=== PATIENT | male | born 1965 | race Caucasian/White ===

== ENCOUNTER 2017-05-08 03:25 | Emergency (ER) | payer BC ==
[2017-05-08 03:34] VITALS: BP 160/108
--- NOTE | 2017-05-08 04:01 | EDM.PDOC ---
ED HPI GENERAL MEDICAL PROBLEM - General Chief Complaint: ENT Problem Stated Complaint: MOUTH WONT STOP BLEEDING Time Seen by Provider: 05/08/17 03:50 Source of Information: Reports: Patient History Limitations: Reports: No Limitations - History of Present Illness INITIAL COMMENTS - FREE TEXT/NARRATIVE: This 52 yo male patient reports to the ED due to bleeding from 2 teeth falling out. The patient reports the 2 teeth had been loose for the past couple of weeks. Yesterday afternoon, the patient reports he was moving the teeth around with his tongue when 1 fell out (no bleeding). The patient reports the other tooth was so loose that he just pulled it out. After pulling out the 2nd tooth, the patient started to notice bleeding. The patient reports he has been bleeding since about 1530 yesterday afternoon. The patient has a fib and is currently on Xeralto. Onset Date: 05/07/17 Onset Time: 15:30 Duration: Constant Location: Reports: Other Severity: Moderate Improves with: Reports: None Worsens with: Reports: None Associated Symptoms: Reports: No Other Symptoms - Related Data Allergies Allergy/AdvReac Type Severity Reaction Status Date / Time No Known Allergies Allergy Verified 05/08/17 03:35 Home Meds: Home Meds Amiodarone HCl [Pacerone] 200 mg PO DAILY 05/08/17 [History] Carvedilol [Coreg] 25 mg PO BID 05/08/17 [History] Furosemide [Lasix] 20 mg PO DAILY 05/08/17 [History] Rivaroxaban [Xarelto] 20 mg PO DAILY 05/08/17 [History] Past Medical History HEENT History: Reports: Impaired Vision Cardiovascular History: Reports: Afib, Arrhythmia - Past Surgical History GI Surgical History: Reports: Hernia Repair/Other Social & Family History - Family History Family Medical History: Noncontributory - Tobacco Use Smoking Status *Q: Current Every Day Smoker Years of Tobacco use: 27 Packs/Tins Daily: 0.4 Second Hand Smoke Exposure: No - Caffeine Use Caffeine Use: Reports: Coffee - Alcohol Use Days Per Week of Alcohol Use: 0 - Recreational Drug Use Recreational Drug Use: No ED ROS ENT - Review of Systems Review Of Systems: ROS reveals no pertinent complaints other than HPI. ED EXAM, ENT - Physical Exam Exam: See Below Exam Limited By: No Limitations General Appearance: Alert, WD/WN, No Apparent Distress, Obese Eye Exam: Bilateral Eye: EOMI, Normal Inspection, PERRL Ears: Normal External Exam, Normal Canal, Hearing Grossly Normal, Normal TMs Nose: Normal Inspection, Normal Mucousa, No Blood Mouth/Throat: Other (bleeding from loose bottom front teeth) Head: Atraumatic, Normocephalic Neck: Normal Inspection, Supple, Non-Tender, Full Range of Motion Respiratory/Chest: No Respiratory Distress, Lungs Clear, Normal Breath Sounds, No Accessory Muscle Use, Chest Non-Tender Cardiovascular: No Edema, No Gallop, No JVD, No Murmur, No Rub, Irregularly Irregular GI/Abdominal: Normal Bowel Sounds, Soft, Non-Tender, No Organomegaly, No Distention, No Abnormal Bruit, No Mass (Male) Exam: Deferred Rectal (Males) Exam: Deferred Back: Normal Inspection, Full Range of Motion Extremities: Normal Inspection, Normal Range of Motion, Non-Tender, No Pedal Edema, Normal Capillary Refill Neurological: Alert, Oriented, CN II-XII Intact, Normal Cognition, Normal Gait, Normal Reflexes, No Motor/Sensory Deficits Psychiatric: Normal Affect, Normal Mood Skin: Warm, Dry, Intact, Normal Color, No Rash Lymphatic: No Adenopathy Course - Vital Signs Last Recorded V/S: Last Vital Signs Temp 36.1 C 05/08/17 03:29 Pulse 56 L 05/08/17 03:29 Resp 16 05/08/17 03:29 BP 160/108 H 05/08/17 03:29 Pulse Ox 97 05/08/17 03:29 - Orders/Labs/Meds Meds: Medications Discontinued Medications Generic Name Dose Route Start Last Admin Trade Name Avelino PRN Reason Stop Dose Admin Silver Nitrate Confirm 05/08/17 04:14 Silver Nitrate Administered 05/08/17 04:15 Dose 1 each .ROUTE .STK-MED ONE - Re-Assessments/Exams Free Text/Narrative Re-Assessment/Exam: 05/08/17 04:19 Attempted to stop the bleeding with direct pressure and applying a tea bag to the area. The bleeding continued from the left lower front tooth. A silver nitrate stick was used. The patient had a very small amount of bleeding after the use of the silver nitrate stick. The patient was given a 2x2 to apply direct pressure to the same area. 05/08/17 04:29 The bleeding subsided with follow-up exam. Departure - Departure Time of Disposition: 04:29 Disposition: Home, Self-Care 01 Condition: Fair Clinical Impression: Dental trauma Qualifiers: Encounter type: initial encounter Qualified Code(s): S09.93XA - Unspecified injury of face, initial encounter - Discharge Information Forms: ED Department Discharge Care Plan Goals: The patient was advised of the examination results during the visit. A silver nitrate stick was applied to the bleeding. If the patient has any additional symptoms or concerns, the patient should follow-up with his primary care facility or visit a dentist.
[2017-05-08] MEDS ORDERED: Silver Nitrate Applicator Each ONE (04:14)
[2017-05-08] MEDS ORDERED: Silver Nitrate Applicator Each TOP ONE (04:22)
== END 2017-05-08 04:38 | disposition home or self-care (01) ==
LOC: DL.ED 03:25
DX: S09.93XA Unspecified injury of face, initial encounter (principal); H54.7 Unspecified visual loss; I48.91 Unspecified atrial fibrillation; F17.210 Nicotine dependence, cigarettes, uncomplicated; Z79.899 Other long term (current) drug therapy; X58.XXXA Exposure to other specified factors, initial encounter
CPT/HCPCS: 99283

== ENCOUNTER 2021-07-31 05:14 | Inpatient (IN) | payer BC ==
--- NOTE | 2021-07-31 06:07 | EDM.PDOC ---
ED HPI GENERAL MEDICAL PROBLEM - General Stated Complaint: FAST HEART RATE Time Seen by Provider: 07/31/21 05:45 Source of Information: Reports: Jail Records History Limitations: Reports: No Limitations - History of Present Illness INITIAL COMMENTS - FREE TEXT/NARRATIVE: This 56 yo male patient reports to the ED this morning due to an elevated heart rate, an elevated blood pressure and chest congestion. The patient reports he was awaken last night at about 2230 with a brief episode of chest pain that radiated to his left arm. The patient reports he has had no additional episodes of chest pain. The patient reports he woke up at 0430 with chest congestion, a fast heart rate and elevated blood pressure. The patient reports he took all of his medications at that time. The patient also reports he got up at about 0230 this morning and took Mariann seltzer and 2 cold pills, but he could not describe exactly how he was feeling prior to taking the medications. The patient has a history of intermittent a fib and CHF. Onset: Today Duration: Constant Location: Reports: Chest, Other Quality: Reports: Other Severity: Moderate Improves with: Reports: None Worsens with: Reports: None Context: Reports: Other Associated Symptoms: Reports: Other (chest congestion) - Related Data Allergies Allergy/AdvReac Type Severity Reaction Status Date / Time No Known Allergies Allergy Verified 07/31/21 05:29 Home Meds: Home Meds Furosemide [Lasix] 20 mg PO DAILY 05/08/17 [History] Rivaroxaban [Xarelto] 20 mg PO DAILY 05/08/17 [History] carvediloL [Coreg] 25 mg PO BID 05/08/17 [History] Allopurinol [Zyloprim] 300 mg PO DAILY 07/31/21 [History] Sotalol [Betapace] 1 tab PO BID 07/31/21 [History] buPROPion [Wellbutrin] 100 mg PO BID 07/31/21 [History] Past Medical History HEENT History: Reports: Impaired Vision Cardiovascular History: Reports: Afib, Arrhythmia Psychiatric History: Reports: Panic Attack - Infectious Disease History Infectious Disease History: Reports: Chicken Pox - Past Surgical History Cardiovascular Surgical History: Reports: Other (See Below) Other Cardiovascular Surgeries/Procedures: Electrocardioversion GI Surgical History: Reports: Hernia Repair/Other Social & Family History - Family History Family Medical History: No Pertinent Family History - Caffeine Use Caffeine Use: Reports: Coffee ED ROS GENERAL - Review of Systems Review Of Systems: Comprehensive ROS is negative, except as noted in HPI. ED EXAM, GENERAL - Physical Exam Exam: See Below Exam Limited By: No Limitations General Appearance: Alert, WD/WN, Mild Distress, Obese Eye Exam: Bilateral Eye: EOMI, Normal Inspection, PERRL Ears: Normal External Exam, Normal Canal, Hearing Grossly Normal, Normal TMs Nose: Normal Inspection, Normal Mucosa, No Blood Throat/Mouth: Normal Inspection, Normal Lips, Normal Teeth, Normal Gums, Normal Oropharynx, Normal Voice, No Airway Compromise Head: Atraumatic, Normocephalic Neck: Normal Inspection, Supple, Non-Tender, Full Range of Motion Respiratory/Chest: No Respiratory Distress, Lungs Clear, Normal Breath Sounds, No Accessory Muscle Use, Chest Non-Tender Cardiovascular: Tachycardia, Systolic Murmur (faint) GI/Abdominal: Normal Bowel Sounds, Soft, Non-Tender, No Organomegaly, No Distention, No Abnormal Bruit, No Mass (Male) Exam: Deferred Rectal (Males) Exam: Deferred Back Exam: Normal Inspection, Full Range of Motion, NT Extremities: Normal Inspection, Normal Range of Motion, Non-Tender, Normal Capillary Refill, Pedal Edema Neurological: Alert, Oriented, CN II-XII Intact, Normal Cognition, Normal Gait, Normal Reflexes, No Motor/Sensory Deficits Psychiatric: Normal Affect, Normal Mood Skin Exam: Warm, Dry, Intact, Normal Color, No Rash Lymphatic: No Adenopathy #1 Interpretation EKG Date: 07/31/21 Time: 05:24 Rhythm: A-Fib (with RVR) Rate (Beats/Min): 137 Bovey: Normal P-Wave: Absent QRS: Normal ST-T: Normal QT: Normal Comparison: Change From Previous EKG Course - Vital Signs Last Recorded V/S: Last Vital Signs Temp 97.9 F 07/31/21 05:35 Pulse 130 H 07/31/21 06:15 Resp 22 H 07/31/21 06:15 BP 110/98 H 07/31/21 06:15 Pulse Ox 96 07/31/21 06:15 - Orders/Labs/Meds Orders: Active Orders 24 hr Category Date Time Status Admission Diagnosis [ADT] Urgent ADT 07/31/21 07:29 Ordered Admission Status [Patient Status] [ADT] Urgent ADT 07/31/21 07:29 Ordered CULTURE BLOOD [BC] Stat Lab 07/31/21 05:50 Received Diltiazem 125 mg Med 07/31/21 06:54 Ordered Sodium Chloride 0.9% [Normal Saline] 125 ml IV ASDIRECTED Medication Orders Diltiazem HCl 125 mg/ Sodium (Chloride) 150 mls @ 5 mls/hr IV ASDIRECTED ONE Stop: 08/01/21 12:53 Labs: Laboratory Tests 07/31/21 07/31/21 07/31/21 Range/Units 05:40 05:50 05:50 WBC 8.2 (5.0-10.0) 10^3/uL RBC 4.54 L (4.6-6.2) 10^6/uL Hgb 14.1 D (14.0-18.0) g/dL Hct 43.1 (40.0-54.0) % MCV 94.9 (80-100) fL MCH 31.1 (27.0-34.0) pg MCHC 32.7 L (33.0-35.0) g/dL Plt Count 184 D (150-450) 10^3/uL Neut % (Auto) 68.1 (42.2-75.2) % Lymph % (Auto) 19.1 L (20.5-50.1) % Bradley % (Auto) 10.2 H (2-8) % Eos % (Auto) 2.1 (1.0-3.0) % Baso % (Auto) 0.5 (0.0-1.0) % Sodium 137 (136-145) mmol/L Potassium 4.0 (3.5-5.1) mmol/L Chloride 104 (98-107) mmol/L Carbon Dioxide 24 (21-32) mmol/L Anion Gap 13.0 (7-13) mEq/L BUN 24 H (7-18) mg/dL Creatinine 1.16 (0.70-1.30) mg/dL Est Cr Clr Drug Dosing 76.19 mL/min Estimated GFR (MDRD) > 60 BUN/Creatinine Ratio 20.7 (No establ ref range) Glucose 126 H (70-99) mg/dL Lactic Acid (0.4-2.0) mmol/L Calcium 8.4 L (8.5-10.1) mg/dL Total Bilirubin 0.4 (0.2-1.0) mg/dL AST 26 (15-37) U/L ALT 46 (16-63) U/L Alkaline Phosphatase 92 (46-116) U/L Troponin I High Sens 13 (<=76) pg/mL B-Natriuretic Peptide (0-100) pg/ml Total Protein 6.7 (6.4-8.2) g/dL Albumin 3.3 L (3.4-5.0) g/dL Globulin 3.4 Albumin/Globulin Ratio 0.97 Influenza Type A RNA Negative (NEGATIVE) Influenza Type B RNA Negative (NEGATIVE) SARS-CoV-2 RNA ([place]AN[place]) Positive H (NEGATIVE) 07/31/21 07/31/21 Range/Units 05:50 05:50 WBC (5.0-10.0) 10^3/uL RBC (4.6-6.2) 10^6/uL Hgb (14.0-18.0) g/dL Hct (40.0-54.0) % MCV (80-100) fL MCH (27.0-34.0) pg MCHC (33.0-35.0) g/dL Plt Count (150-450) 10^3/uL Neut % (Auto) (42.2-75.2) % Lymph % (Auto) (20.5-50.1) % Bradley % (Auto) (2-8) % Eos % (Auto) (1.0-3.0) % Baso % (Auto) (0.0-1.0) % Sodium (136-145) mmol/L Potassium (3.5-5.1) mmol/L Chloride (98-107) mmol/L Carbon Dioxide (21-32) mmol/L Anion Gap (7-13) mEq/L BUN (7-18) mg/dL Creatinine (0.70-1.30) mg/dL Est Cr Clr Drug Dosing mL/min Estimated GFR (MDRD) BUN/Creatinine Ratio (No establ ref range) Glucose (70-99) mg/dL Lactic Acid 0.9 (0.4-2.0) mmol/L Calcium (8.5-10.1) mg/dL Total Bilirubin (0.2-1.0) mg/dL AST (15-37) U/L ALT (16-63) U/L Alkaline Phosphatase (46-116) U/L Troponin I High Sens (<=76) pg/mL B-Natriuretic Peptide 515 H (0-100) pg/ml Total Protein (6.4-8.2) g/dL Albumin (3.4-5.0) g/dL Globulin Albumin/Globulin Ratio Influenza Type A RNA (NEGATIVE) Influenza Type B RNA (NEGATIVE) SARS-CoV-2 RNA ([place]ANNA) (NEGATIVE) Meds: Medications Generic Name Dose Route Start Last Admin Trade Name Freq PRN Reason Stop Dose Admin Diltiazem HCl 125 mg/ Sodium 150 mls @ 5 mls/hr 07/31/21 06:54 Chloride IV 08/01/21 12:53 ASDIRECTED ONE Discontinued Medications Generic Name Dose Route Start Last Admin Trade Name Freq PRN Reason Stop Dose Admin Diltiazem HCl 20 mg 07/31/21 06:30 07/31/21 06:38 Diltiazem 25 Mg/5 Ml Sdv IVPUSH 07/31/21 06:31 20 mg ONETIME ONE Administration Departure - Departure Time of Disposition: 07:35 Disposition: Admitted As Inpatient 64 Condition: Fair Clinical Impression: Atrial fibrillation with RVR, COVID, Elevated brain natriuretic peptide (BNP) level Care Plan Goals: Discussed the patient's history, examination, lab results and treatments with Dr. Wyatt. Dr. Wyatt accepted the patient for continued evaluation and management as an inpatient at [facility]. Sepsis Event Note (ED) - Evaluation Sepsis Screening Result: No Definite Risk - Focused Exam Vital Signs: Vital Signs Temp Pulse Resp BP Pulse Ox 07/31/21 06:15 130 H 22 H 110/98 H 96 07/31/21 06:00 138 H 18 107/95 H 94 L 07/31/21 05:35 97.9 F 142 H 16 114/98 H 94 L - My Orders Last 24 Hours: My Active Orders 07/31/21 05:50 CULTURE BLOOD [BC] Stat 07/31/21 06:54 Diltiazem 125 mg Sodium Chloride 0.9% [Normal Saline] 125 ml IV ASDIRECTED 07/31/21 07:29 Admission Diagnosis [ADT] Urgent Admission Status [Patient Status] [ADT] Urgent - Assessment/Plan Last 24 Hours: My Active Orders 07/31/21 05:50 CULTURE BLOOD [BC] Stat 07/31/21 06:54 Diltiazem 125 mg Sodium Chloride 0.9% [Normal Saline] 125 ml IV ASDIRECTED 07/31/21 07:29 Admission Diagnosis [ADT] Urgent Admission Status [Patient Status] [ADT] Urgent
[2021-07-31 06:27] LABS: CHLORIDE,CL 104 mmol/L (98-107); SODIUM,NA 137 mmol/L (136-145)
[2021-07-31] MEDS ORDERED: Diltiazem 25 MG/5 ML SDV IVPUSH ONE ×2 (06:30→13:05)
[2021-07-31 06:52] LABS: CORONAVIRUS COVID-19 NAA POSITIVE (NEGATIVE)
[2021-07-31] MEDS: Diltiazem 125 MG in Sodium Chloride 0.9% 125 ML IV ONE ×2 (07:39→11:16)
[2021-07-31] MEDS ORDERED: Acetaminophen 325 MG Tab PO PRN (09:06)
[2021-07-31] MEDS ORDERED: Polyethylene Glycol 3350 Powder 17 GM Packet PO PRN (09:06)
[2021-07-31] MEDS ORDERED: Ondansetron 4 MG Tab.DIS PO PRN (09:06)
--- NOTE | 2021-07-31 09:18 | PCM.HP ---
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 He tried to take his home meds and rest, which did not improve his symptoms, prior to coming to the hospital. moving around made it worse. time of day didn't change sx. he has had this prior when he was in atrial fibrillation. He has no pain and no other associated symptoms. he is fully vaccinated and boosted against covid 19. He denies SOB, chest pain, fever and chills. Onset of Symptoms: Reports: Today, Sudden Duration of Symptoms: Reports: Hour(s):, Getting Worse Location: Reports: Chest Quality: Reports: Other (palpitations) Improves with: Reports: None Worsens with: Reports: Movement Context: Reports: Rest Associated Symptoms: Reports: Shortness of Breath - Related Data Allergies/Adverse Reactions: Allergies Allergy/AdvReac Type Severity Reaction Status Date / Time No Known Allergies Allergy Verified 07/31/21 05:29 Home Medications: Home Meds Furosemide [Lasix] 20 mg PO DAILY 05/08/17 [History] Rivaroxaban [Xarelto] 20 mg PO DAILY 05/08/17 [History] Allopurinol [Zyloprim] 300 mg PO DAILY 07/31/21 [History] Sotalol [Betapace] 80 mg PO BID 07/31/21 [History] buPROPion HCL [Bupropion HCl Sr] 100 mg PO BID 07/31/21 [History] carvediloL [Carvedilol] 12.5 mg PO BID 07/31/21 [History] Past Medical History HEENT History: Reports: Impaired Vision Cardiovascular History: Reports: Afib, Arrhythmia, CAD, Heart Failure, High Cholesterol, Hypertension Respiratory History: Reports: SOB, Other (See Below) (likely COPD. no official PFTs) Gastrointestinal History: Reports: Other (See Below) (Hx of bowel obstruction) Psychiatric History: Reports: Panic Attack - Infectious Disease History Infectious Disease History: Reports: Chicken Pox - Past Surgical History Cardiovascular Surgical History: Reports: Other (See Below) Other Cardiovascular Surgeries/Procedures: Electrocardioversion GI Surgical History: Reports: Hernia Repair/Other Male Surgical History: Reports: None Social & Family History - Family History Family Medical History: No Pertinent Family History Cardiac: Reports: DE (brother) Oncologic: Reports: Bone (maternal grandmother), Lung (father and mother), Renal (brother) - Tobacco Use Tobacco Use Status *Q: Current Some Day Tobacco User Years of Tobacco use: 40 Packs/Tins Daily: 0.5 - Caffeine Use Caffeine Use: Reports: Coffee - Recreational Drug Use Recreational Drug Use: No H&P Review of Systems - Review of Systems: Review Of Systems: See Below General: Reports: No Symptoms HEENT: Reports: No Symptoms Pulmonary: Reports: Shortness of Breath. Denies: Wheezing, Cough, Sputum Cardiovascular: Reports: Palpitations. Denies: Edema, Lightheadedness, Syncope, Blood Pressure Problem Gastrointestinal: Reports: No Symptoms Genitourinary: Reports: No Symptoms Musculoskeletal: Reports: No Symptoms Skin: Reports: No Symptoms Psychiatric: Reports: No Symptoms Neurological: Reports: No Symptoms Hematologic/Lymphatic: Reports: No Symptoms Immunologic: Reports: No Symptoms Exam - Exam Exam: See Below - Vital Signs Vital Signs: Last Vital Signs Temp 97.9 F 07/31/21 05:35 Pulse 88 07/31/21 07:45 Resp 14 07/31/21 07:45 BP 109/93 H 07/31/21 07:45 Pulse Ox 92 L 07/31/21 07:45 Weight: 281 lb 3.2 oz - Exam General: Alert, Oriented, Cooperative HEENT: EOMI, Pupils Equal Neck: Supple. No: JVD Lungs: Normal Respiratory Effort, Decreased Breath Sounds (at bilateral bases), Wheezing (mild end expiratory). No: Rales, Rhonchi, Rub GI/Abdominal Exam: Normal Bowel Sounds, Soft, Non-Tender Back Exam: Normal Inspection, Full Range of Motion Extremities: Normal Inspection, Normal Range of Motion, No Pedal Edema Skin: Warm, Dry, Intact Neuro Extensive - Mental Status: Alert, Oriented x3, Normal Mood/Affect Neuro Extensive - Motor, Sensory, Reflexes: Normal Gait Psychiatric: Alert, Normal Affect, Normal Mood - Patient Data Lab Results Last 24 hrs: Laboratory Results - last 24 hr 07/31/21 07/31/21 07/31/21 Range/Units 05:40 05:50 05:50 WBC 8.2 (5.0-10.0) 10^3/uL RBC 4.54 L (4.6-6.2) 10^6/uL Hgb 14.1 D (14.0-18.0) g/dL Hct 43.1 (40.0-54.0) % MCV 94.9 (80-100) fL MCH 31.1 (27.0-34.0) pg MCHC 32.7 L (33.0-35.0) g/dL Plt Count 184 D (150-450) 10^3/uL Neut % (Auto) 68.1 (42.2-75.2) % Lymph % (Auto) 19.1 L (20.5-50.1) % Stewart % (Auto) 10.2 H (2-8) % Eos % (Auto) 2.1 (1.0-3.0) % Baso % (Auto) 0.5 (0.0-1.0) % Sodium 137 (136-145) mmol/L Potassium 4.0 (3.5-5.1) mmol/L Chloride 104 (98-107) mmol/L Carbon Dioxide 24 (21-32) mmol/L Anion Gap 13.0 (7-13) mEq/L BUN 24 H (7-18) mg/dL Creatinine 1.16 (0.70-1.30) mg/dL Est Cr Clr Drug Dosing 76.19 mL/min Estimated GFR (MDRD) > 60 BUN/Creatinine Ratio 20.7 (No establ ref range) Glucose 126 H (70-99) mg/dL Lactic Acid (0.4-2.0) mmol/L Calcium 8.4 L (8.5-10.1) mg/dL Total Bilirubin 0.4 (0.2-1.0) mg/dL AST 26 (15-37) U/L ALT 46 (16-63) U/L Alkaline Phosphatase 92 (46-116) U/L Troponin I High Sens 13 (<=76) pg/mL B-Natriuretic Peptide (0-100) pg/ml Total Protein 6.7 (6.4-8.2) g/dL Albumin 3.3 L (3.4-5.0) g/dL Globulin 3.4 Albumin/Globulin Ratio 0.97 Influenza Type A RNA Negative (NEGATIVE) Influenza Type B RNA Negative (NEGATIVE) SARS-CoV-2 RNA (TANNA) Positive H (NEGATIVE) 07/31/21 07/31/21 Range/Units 05:50 05:50 WBC (5.0-10.0) 10^3/uL RBC (4.6-6.2) 10^6/uL Hgb (14.0-18.0) g/dL Hct (40.0-54.0) % MCV (80-100) fL MCH (27.0-34.0) pg MCHC (33.0-35.0) g/dL Plt Count (150-450) 10^3/uL Neut % (Auto) (42.2-75.2) % Lymph % (Auto) (20.5-50.1) % Stewart % (Auto) (2-8) % Eos % (Auto) (1.0-3.0) % Baso % (Auto) (0.0-1.0) % Sodium (136-145) mmol/L Potassium (3.5-5.1) mmol/L Chloride (98-107) mmol/L Carbon Dioxide (21-32) mmol/L Anion Gap (7-13) mEq/L BUN (7-18) mg/dL Creatinine (0.70-1.30) mg/dL Est Cr Clr Drug Dosing mL/min Estimated GFR (MDRD) BUN/Creatinine Ratio (No establ ref range) Glucose (70-99) mg/dL Lactic Acid 0.9 (0.4-2.0) mmol/L Calcium (8.5-10.1) mg/dL Total Bilirubin (0.2-1.0) mg/dL AST (15-37) U/L ALT (16-63) U/L Alkaline Phosphatase (46-116) U/L Troponin I High Sens (<=76) pg/mL B-Natriuretic Peptide 515 H (0-100) pg/ml Total Protein (6.4-8.2) g/dL Albumin (3.4-5.0) g/dL Globulin Albumin/Globulin Ratio Influenza Type A RNA (NEGATIVE) Influenza Type B RNA (NEGATIVE) SARS-CoV-2 RNA (TANNA) (NEGATIVE) Result Diagrams: 07/31/21 05:50 07/31/21 05:50 Problem List Initiated/Reviewed/Updated: Yes Orders Last 24hrs: Active Orders 24 hr Category Date Time Status Admission Diagnosis [ADT] Urgent ADT 07/31/21 07:29 Ordered Admission Status [Patient Status] [ADT] Urgent ADT 07/31/21 07:29 Active Patient Status [ADT] Routine ADT 07/31/21 09:06 Ordered Antiembolic Devices [RC] PER UNIT ROUTINE Care 07/31/21 09:10 Ordered Cardiac Monitoring [RC] CONTINUOUS Care 07/31/21 09:08 Ordered Height and Weight [RC] DAILY Care 07/31/21 09:06 Ordered Intake and Output [RC] QSHIFT Care 07/31/21 09:08 Ordered Notify Provider Vital Signs [RC] ASDIRECTED Care 07/31/21 09:08 Ordered Nurse Communication: Isolation [RC] ASDIRECTED Care 07/31/21 09:08 Ordered Oxygen Therapy [RC] PRN Care 07/31/21 09:06 Ordered Positioning, Patient [RC] ASDIRECTED Care 07/31/21 09:12 Ordered Pulse Oximetry [RC] CONTINUOUS Care 07/31/21 09:08 Ordered RT Incentive Spirometry [RC] ASDIRECTED Care 07/31/21 09:06 Ordered Up With Assistance [RC] ASDIRECTED Care 07/31/21 09:06 Ordered VTE/DVT Education [RC] PER UNIT ROUTINE Care 07/31/21 09:06 Ordered Vital Signs [RC] Q4H Care 07/31/21 09:06 Ordered 2 Gram Sodium Diet [DIET] Diet 07/31/21 Breakfast Ordered Heart Healthy Diet [DIET] Diet 07/31/21 Breakfast Ordered C-REACTIVE PROTEIN [REF] DAILY Lab 08/01/21 09:15 Ordered CBC W/O DIFF,HEMOGRAM [HEME] AM Lab 08/01/21 05:11 Ordered COMPREHENSIVE METABOLIC PN,CMP [CHEM] AM Lab 08/01/21 05:11 Ordered CULTURE BLOOD [BC] Stat Lab 07/31/21 05:50 Received D-DIMER QUANTITATIVE [COAG] Stat Lab 07/31/21 09:06 Ordered FERRITIN [CHEM] Routine Lab 07/31/21 09:06 Ordered Acetaminophen [TylenoL] Med 07/31/21 09:06 Ordered 650 mg PO Q4H PRN Diltiazem 125 mg Med 07/31/21 06:54 Active Sodium Chloride 0.9% [Normal Saline] 125 ml IV ASDIRECTED Nicotine [Habitrol] Med 07/31/21 09:15 Ordered 14 mg TRDERM DAILY Ondansetron [Zofran ODT] Med 07/31/21 09:06 Ordered 4 mg PO Q6H PRN Tocilizumab [Actemra] 800 mg Med 07/31/21 10:00 Active Sodium Chloride 0.9% [Normal Saline] 100 ml IV ONETIME polyethylene glycoL 3350 [MiraLAX] Med 07/31/21 09:06 Ordered 17 gm PO DAILY PRN Isolation [COMM] Stat Oth 07/31/21 09:06 Ordered Sequential Compression Device [OM.PC] Per Unit Routine Oth 07/31/21 09:10 Ordered Resuscitation Status Routine Resus Stat 07/31/21 09:06 Ordered Medication Orders Diltiazem HCl 125 mg/ Sodium (Chloride) 150 mls @ 5 mls/hr IV ASDIRECTED ONE Stop: 08/01/21 12:53 Tocilizumab 800 mg/ Sodium (Chloride) 140 mls @ 140 mls/hr IV ONETIME ONE Stop: 07/31/21 10:01 Assessment/Plan Comment:: Atrial fibrillation with RVR Hx of paroxysmal atrial fibrillation 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 given cardizem push 20mg x1 after which HR recovered to 100-110s - EKG: no signs of acute ischemia. afib noted. Plan: - continue home medications including sotalol 80mg bid, coreg 12.5mg bid and xarelto 20mg once daily for anticoagulation - cardizem gtt with titration to rate <100 - tele Covid 19 viral infection: - currently not requiring supplemental oxygen so does not qualify for remdesivir or dexamethasone - up to date on vaccines x2 and has gotten booster - did have covid 19 in august 2020 Plan: - due to multiple comorbidities will initiate tocilizumab 800mg x1 dose - continuous pulse oximetry with goal O2 sat >88% Chronic conditions: - severe obesity: BMI 37 on admit - chronic diastolic heart failure: continue current home meds including lasix 20mg once daily and coreg 12.5mg bid. currently not on an ACEI or ARB - unspecified depression: continue buproprion - unspecified gout: continue allopurinol 300mg once daily DVT prophylaxis: bi Code status: DNR/DNI. code status/DNR discussion today. reaffirmed code status as DNR/DNI
[2021-07-31] MEDS ORDERED: Tocilizumab 800 MG in Sodium Chloride 0.9% 100 ML IV ONE (10:00)
[2021-07-31] MEDS ORDERED: Diltiazem 125 MG in Sodium Chloride 0.9% 100 ML IV ONE (11:15)
[2021-07-31] MEDS ORDERED: Diltiazem 125 MG in Sodium Chloride 0.9% 100 ML IV SCH (11:30)
[2021-07-31] MEDS: Nicotine 14 MG/24 Hr Patch TRDERM SCH (11:54)
[2021-07-31] MEDS: Carvedilol 6.25 MG Tab PO SCH (17:21)
[2021-07-31] MEDS: Sotalol 80 MG Tab PO SCH (20:36)
[2021-07-31] MEDS ORDERED: Carvedilol 25 MG Tab PO SCH (21:00)
[2021-08-01 08:06] LABS: ANION GAP 13.4 mEq/L (7-13); CHLORIDE,CL 105 mmol/L (98-107); SODIUM,NA 141 mmol/L (136-145)
[2021-08-01] MEDS ORDERED: Furosemide 20 MG Tab PO SCH (09:00)
[2021-08-01] MEDS: Sotalol 80 MG Tab PO SCH ×2 (09:11→20:54)
[2021-08-01] MEDS: Nicotine 14 MG/24 Hr Patch TRDERM SCH (09:11)
[2021-08-01] MEDS: Carvedilol 6.25 MG Tab PO SCH ×2 (09:12→19:17)
[2021-08-01] MEDS: Allopurinol 300 MG Tab PO SCH (09:12)
[2021-08-01] MEDS ORDERED: Sotalol 80 MG Tab PO ONE (10:15)
--- NOTE | 2021-08-01 11:54 | PCM.PN ---
- General Info Date of Service: 08/01/21 Admission Dx/Problem (Free Text): Admission Diagnosis/Problem Admission Diagnosis/Problem Atrial fibrillation with rapid ventricular response Functional Status: Reports: Pain Controlled - Review of Systems General: Reports: No Symptoms HEENT: Reports: No Symptoms, Glasses Pulmonary: Reports: No Symptoms Cardiovascular: Reports: No Symptoms, Edema (trace pedal). Denies: Palpitatio ns, Dyspnea on Exertion, Lightheadedness Gastrointestinal: Reports: No Symptoms Genitourinary: Reports: No Symptoms Musculoskeletal: Reports: No Symptoms Skin: Reports: No Symptoms Neurological: Reports: No Symptoms Psychiatric: Reports: No Symptoms - Patient Data Vitals - Most Recent: Last Vital Signs Temp 97.2 F 08/01/21 11:37 Pulse 91 08/01/21 11:37 Resp 18 08/01/21 11:37 BP 120/91 H 08/01/21 11:37 Pulse Ox 91 L 08/01/21 11:37 Weight - Most Recent: 274 lb 3.2 oz I&O - Last 24 Hours: Intake & Output 07/31/21 08/01/21 08/01/21 22:59 06:59 14:59 Intake Total 360 86 Output Total 400 Balance 360 -314 Lab Results Last 24 Hours: Laboratory Results - last 24 hr 08/01/21 08/01/21 Range/Units 06:00 06:00 WBC 3.9 L (5.0-10.0) 10^3/uL RBC 4.64 (4.6-6.2) 10^6/uL Hgb 14.2 (14.0-18.0) g/dL Hct 44.3 (40.0-54.0) % MCV 95.5 (80-100) fL MCH 30.6 (27.0-34.0) pg MCHC 32.1 L (33.0-35.0) g/dL Plt Count 184 (150-450) 10^3/uL Sodium 141 (136-145) mmol/L Potassium 4.4 (3.5-5.1) mmol/L Chloride 105 (98-107) mmol/L Carbon Dioxide 27 (21-32) mmol/L Anion Gap 13.4 H (7-13) mEq/L BUN 17 (7-18) mg/dL Creatinine 1.08 (0.70-1.30) mg/dL Est Cr Clr Drug Dosing 81.83 mL/min Estimated GFR (MDRD) > 60 BUN/Creatinine Ratio 15.7 (No establ ref range) Glucose 100 H (70-99) mg/dL Calcium 8.6 (8.5-10.1) mg/dL Total Bilirubin 0.5 (0.2-1.0) mg/dL AST 23 (15-37) U/L ALT 47 (16-63) U/L Alkaline Phosphatase 85 (46-116) U/L C-Reactive Protein 0.5 (0.0-0.9) mg/dL Total Protein 6.6 (6.4-8.2) g/dL Albumin 3.3 L (3.4-5.0) g/dL Globulin 3.3 Albumin/Globulin Ratio 1.00 Tacho Results Last 24 Hours: Microbiology 07/31/21 05:50 Aerobic Blood Culture - Preliminary Blood - Venous - Iv Start NO GROWTH AFTER 1 DAY Anaerobic Blood Culture - Preliminary NO GROWTH AFTER 1 DAY Med Orders - Current: Current Medications Acetaminophen (Acetaminophen 325 Mg Tab) 650 mg PO Q4H PRN PRN Reason: Pain (Mild 1-3)/fever Allopurinol (Allopurinol 300 Mg Tab) 300 mg PO DAILY [facility] [place] Last Admin: 08/01/21 09:12 Dose: 300 mg Documented by: Furosemide (Furosemide 20 Mg Tab) 20 mg PO DAILY [facility] [place] Last Admin: 08/01/21 09:13 Dose: 20 mg Documented by: Nicotine (Nicotine 14 Mg/24 Hr Patch) 14 mg TRDERM DAILY [facility] [place] Last Admin: 08/01/21 09:11 Dose: 14 mg Documented by: Non-Formulary Medication (Bupropion) 100 mg PO BID [facility] [place] Ondansetron HCl (Ondansetron 4 Mg Tab.Dis) 4 mg PO Q6H PRN PRN Reason: nausea, able to take PO Polyethylene Glycol (Polyethylene Glycol 3350 Powder 17 Gm Packet) 17 gm PO DAILY PRN PRN Reason: Constipation Rivaroxaban (Rivaroxaban 10 Mg Tab) 20 mg PO WITHDINNER [facility] [place] Sotalol HCl (Sotalol 80 Mg Tab) 120 mg PO BID [facility] [place] Discontinued Medications Carvedilol (Carvedilol 25 Mg Tab) 25 mg PO BID [facility] [place] Carvedilol (Carvedilol 6.25 Mg Tab) 12.5 mg PO BIDMEALS [facility] [place] Last Admin: 08/01/21 09:12 Dose: 12.5 mg Documented by: Diltiazem HCl (Diltiazem 25 Mg/5 Ml Sdv) 20 mg IVPUSH ONETIME ONE Stop: 07/31/21 06:31 Last Admin: 07/31/21 06:38 Dose: 20 mg Documented by: Diltiazem HCl (Diltiazem 25 Mg/5 Ml Sdv) 5 mg IVPUSH ONETIME ONE Stop: 07/31/21 13:06 Last Admin: 07/31/21 14:01 Dose: 5 mg Documented by: Diltiazem HCl 125 mg/ Sodium (Chloride) 150 mls @ 5 mls/hr IV ASDIRECTED ONE Stop: 08/01/21 12:53 Last Admin: 07/31/21 11:16 Dose: Not Given Documented by: Tocilizumab 800 mg/ Sodium (Chloride) 140 mls @ 140 mls/hr IV ONETIME ONE Stop: 07/31/21 10:01 Last Admin: 07/31/21 11:10 Dose: 140 mls/hr Documented by: Diltiazem HCl 125 mg/ Sodium (Chloride) 125 mls @ 5 mls/hr IV TITRATE [facility] [place]; Protocol Last Titration: 07/31/21 17:23 Dose: 5 mg/hr, 5 mls/hr Documented by: Sotalol HCl (Sotalol 80 Mg Tab) 80 mg PO BID [facility] [place] Last Admin: 08/01/21 09:11 Dose: 80 mg Documented by: Sotalol HCl (Sotalol 80 Mg Tab) 40 mg PO ONETIME ONE Stop: 08/01/21 10:16 Last Admin: 08/01/21 10:42 Dose: 40 mg Documented by: - Exam Quality Assessment: DVT Prophylaxis. No: Supplemental Oxygen, Urine Catheter, Skin Breakdown General: Alert, Oriented, Cooperative, No Acute Distress HEENT: Pupils Equal, EOMI, Mucous Membr. Moist/[place] Neck: Supple, No JVD Lungs: Clear to Auscultation, Normal Respiratory Effort. No: Rhonchi, Rub, Wheezing Cardiovascular: Irregular Rhythm, Murmurs (3/6 systolic) GI/Abdominal Exam: Soft, Non-Tender (Male) Exam: Deferred Back Exam: Normal Inspection, Full Range of Motion Extremities: Normal Range of Motion, Non-Tender, Pedal Edema Skin: Warm, Dry, Intact Neurological: No New Focal Deficit Psy/Mental Status: Normal Affect, Normal Mood - Patient Data Lab Results Last 24 hrs: Laboratory Results - last 24 hr 08/01/21 08/01/21 Range/Units 06:00 06:00 WBC 3.9 L (5.0-10.0) 10^3/uL RBC 4.64 (4.6-6.2) 10^6/uL Hgb 14.2 (14.0-18.0) g/dL Hct 44.3 (40.0-54.0) % MCV 95.5 (80-100) fL MCH 30.6 (27.0-34.0) pg MCHC 32.1 L (33.0-35.0) g/dL Plt Count 184 (150-450) 10^3/uL Sodium 141 (136-145) mmol/L Potassium 4.4 (3.5-5.1) mmol/L Chloride 105 (98-107) mmol/L Carbon Dioxide 27 (21-32) mmol/L Anion Gap 13.4 H (7-13) mEq/L BUN 17 (7-18) mg/dL Creatinine 1.08 (0.70-1.30) mg/dL Est Cr Clr Drug Dosing 81.83 mL/min Estimated GFR (MDRD) > 60 BUN/Creatinine Ratio 15.7 (No establ ref range) Glucose 100 H (70-99) mg/dL Calcium 8.6 (8.5-10.1) mg/dL Total Bilirubin 0.5 (0.2-1.0) mg/dL AST 23 (15-37) U/L ALT 47 (16-63) U/L Alkaline Phosphatase 85 (46-116) U/L C-Reactive Protein 0.5 (0.0-0.9) mg/dL Total Protein 6.6 (6.4-8.2) g/dL Albumin 3.3 L (3.4-5.0) g/dL Globulin 3.3 Albumin/Globulin Ratio 1.00 Result Diagrams: 08/01/21 06:00 08/01/21 06:00 Tacho Results Last 24 hrs: Microbiology 07/31/21 05:50 Aerobic Blood Culture - Preliminary Blood - Venous - Iv Start NO GROWTH AFTER 1 DAY Anaerobic Blood Culture - Preliminary NO GROWTH AFTER 1 DAY Sepsis Event Note - Evaluation Sepsis Screening Result: No Definite Risk - Focused Exam Vital Signs: Vital Signs Temp Pulse Pulse Resp BP BP BP 08/01/21 11:37 97.2 F 91 18 120/91 H 08/01/21 10:42 86 106/82 08/01/21 09:12 106 H 119/87 08/01/21 09:11 108 H 119/87 08/01/21 09:00 105 H 08/01/21 07:38 97.5 F 104 H 19 121/103 H 08/01/21 04:00 97.8 F 97 20 118/88 08/01/21 00:00 97.8 F 98 20 109/88 Pulse Ox 08/01/21 11:37 91 L 08/01/21 10:42 08/01/21 09:12 08/01/21 09:11 08/01/21 09:00 08/01/21 07:38 95 08/01/21 04:00 92 L 08/01/21 00:00 93 L - Problem List Review Problem List Initiated/Reviewed/Updated: Yes - My Orders Last 24 Hours: My Active Orders 07/31/21 11:00 Nicotine [Habitrol] 14 mg TRDERM DAILY 07/31/21 21:00 buPROPion 100 mg PO BID 08/01/21 09:00 Furosemide [Lasix] 20 mg PO DAILY allopurinoL [Zyloprim] 300 mg PO DAILY 08/01/21 18:00 Rivaroxaban [Xarelto] 20 mg PO WITHDINNER 08/01/21 21:00 Sotalol [Betapace] 120 mg PO BID - Plan Plan:: ACTIVE PROBLEMS: Atrial fibrillation with RVR Hx of paroxysmal atrial fibrillation 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 given cardizem push 20mg x1 after which HR recovered to 100- 110s - EKG: no signs of acute ischemia. afib noted. Plan: - continue home medications including sotalol 80mg bid and xarelto 20mg once daily for anticoagulation - DC cardizem gtt - increase sotalol to 120mg bid - tele Covid 19 viral infection: - currently not requiring supplemental oxygen so does not qualify for remdesivir or dexamethasone - up to date on vaccines x2 and has gotten booster - did have covid 19 in august 2020 - due to multiple comorbidities tocilizumab 800mg x1 dose given 07/31 Plan: - continuous pulse oximetry with goal O2 sat >88% chronic diastolic heart failure: - No signs of acute exacerbation: Plan: - hold home dose carvedilol to avoid bradycardia with increased sotalol dose. may resume at home dose or lower at discharge dependent upon HR. - continue lasix 20mg once daily - currently not on an ACEI or ARB CHRONIC CONDITIONS: - severe obesity: BMI 37 on admit - unspecified depression: continue buproprion - unspecified gout: continue allopurinol 300mg once daily DVT prophylaxis: xarelto Code status: DNR/DNI. code status/DNR discussion today. reaffirmed code status as DNR/DNI Interval Hx/MDM: Pt doing well today. stopped cardizem gtt today and increased sotalol dose. continuing on telemetry. will monitor HR overnight on new sotalol dose, determine ability to resume home coreg at discharge.
[2021-08-01] MEDS: Rivaroxaban 10 MG Tab PO SCH (17:15)
[2021-08-01] MEDS ORDERED: Digoxin 500 MCG/2 ML Amp IVPUSH ONE (22:05)
[2021-08-01] MEDS ORDERED: Furosemide 40 MG/4 ML VIAL IVPUSH ONE (22:07)
[2021-08-02] MEDS ORDERED: Diltiazem 25 MG/5 ML SDV IVPUSH ONE ×3 (07:36→23:27)
[2021-08-02] MEDS ORDERED: Potassium Chloride 10 MEQ Tab.ER PO ONE (07:44)
[2021-08-02] MEDS ORDERED: Carvedilol 6.25 MG Tab PO SCH (08:00)
[2021-08-02] MEDS: Sotalol 80 MG Tab PO SCH ×2 (08:27→21:24)
[2021-08-02] MEDS: Allopurinol 300 MG Tab PO SCH (08:28)
[2021-08-02] MEDS: Carvedilol 6.25 MG Tab PO SCH (08:29)
[2021-08-02] MEDS: Furosemide 40 MG/4 ML VIAL IVPUSH SCH (08:36)
[2021-08-02] MEDS: Nicotine 14 MG/24 Hr Patch TRDERM SCH (08:40)
[2021-08-02] MEDS: Doxycycline Monohydrate 100 MG Cap PO SCH ×2 (11:42→21:25)
--- NOTE | 2021-08-02 13:45 | CR ---
EXAMINATION: Chest 1V Frontal SEX: Male AGE: 56 years CLINICAL HISTORY: 56-year-old male with shortness of breath (SOB) who is covid positive. No comparisons. INTERPRETATION: Reasonable inspiratory effort obese male. 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 1. Cardiac silhouette within normal limits i.e. normal size and configuration. 2. No pulmonary vascular congestion, cephalization of flow, alveolar edema or dependent pleural fluid accumulation i.e. no pleural effusions. 3. No lung mass or hilar lymphadenopathy. Normal midline tracheal bronchial airway. 4. No alveolar consolidation, air bronchograms, or peripheral "groundglass" interstitial lung densities. 5. No pneumothorax or pneumomediastinum. No free subdiaphragmatic air. Conclusion: No acute cardiopulmonary abnormality.
[2021-08-02] MEDS ORDERED: Albuterol/Ipratropium 3.0-0.5 MG/3 ML Neb Soln NEB PRN (15:11)
[2021-08-02] MEDS: Digoxin 125 MCG Tab PO SCH (15:29)
[2021-08-02] MEDS: methylPREDNISolone Sodium Succinate 40 MG/1 ML SDV IVPUSH SCH ×2 (16:15→21:26)
[2021-08-02] MEDS: Rivaroxaban 10 MG Tab PO SCH (17:52)
[2021-08-02] MEDS: Carvedilol 25 MG Tab PO SCH (17:52)
[2021-08-02] MEDS ORDERED: Budesonide 0.5 MG/2 ML Neb Susp NEB SCH (18:00)
[2021-08-02] MEDS: [UNRECOGNIZED DRUG - REMARK] PO SCH (21:27)
[2021-08-03] MEDS: methylPREDNISolone Sodium Succinate 40 MG/1 ML SDV IVPUSH SCH ×2 (04:23→11:33)
[2021-08-03] MEDS ORDERED: Diltiazem 125 MG in Sodium Chloride 0.9% 100 ML IV SCH (06:45)
--- NOTE | 2021-08-03 06:59 | PN ---
DATE: 08/02/2021 SUBJECTIVE: The patient was seen today. He was sitting at the chair, and the patient is concerned about his heart rate, which during the night went up to 120, 130; difficult to control. The patient was given in the morning diltiazem IV push 20 mg, and his sotalol was increased today to 120 mg p.o. twice a day. The patient has wheezing since prior to admission. He has COPD. He smokes. He also has cough productive of yellow phlegm. OBJECTIVE: Vital Signs: Today, at 8 o'clock, heart rate 122 and blood pressure 101/84 with oxygen saturation 94%. General: The patient looks older than his stated age. Head: Atraumatic and normocephalic. Eyes: Pupils are equally reactive to light. Neck: Supple. No thyromegaly. No lymphadenopathy. Heart: S1 and S2. Irregular. Tachycardic. Lungs: Bilateral wheezing. Abdomen: Soft and nontender. Positive bowel sounds. Extremities: 1+ bilateral pitting edema. Neurologic: The patient is alert and oriented x3. There are no focal neurological deficits. LABORATORY DATA AT ADMISSION: WBC 2.9, hemoglobin 14.2, hematocrit 44.3, and platelet count 184. Chemistry: His sodium 141, potassium 4.4, chloride 105, carbon dioxide 27, anion gap 13.4, glucose 100, creatinine 1.08, and BUN 17. Calcium 8.6, total bilirubin 0.5, AST 23, ALT 47, alkaline phosphatase 85, total protein 6.6, and albumin 3.3. Chest x-ray done today shows cardiac silhouette within normal limits. Normal signs and configuration. No pulmonary vascular congestion, cephalization of flow, alveolar edema, or dependent pleural fluid accumulation. No pleural effusions. No lung mass or hilar lymphadenopathy. Normal midline tracheobronchial airways, no alveolar consolidation, air bronchogram, or peripheral ground glass or interstitial lung densities. No pneumothorax or pneumomediastinum. No free subdiaphragmatic air. ASSESSMENT AND PLAN: 1. Atrial fibrillation with rapid ventricular rate, history of paroxysmal atrial fibrillation, and history of long-term anticoagulation on Xarelto. Plan: Continue the patient with sotalol, was increased at 120 mg p.o. twice a day, and we will increase Coreg to 25 mg p.o. twice a day. We will continue to monitor the patient in telemetry. The patient was given yesterday 1 dose of digoxin 250 mcg IV push, and we will continue the patient with digoxin 125 mcg p.o. daily. 2. Chronic obstructive pulmonary disease exacerbation. The patient was started on Solu-Medrol 40 mg IV q.6 hours, and he was started also on doxycycline 100 mg p.o. b.i.d. and budesonide 0.5 mg nebulizer b.i.d. 3. Coronavirus disease 2019 viral infection, currently not requiring any supplementary oxygen, so does not qualify for remdesivir or dexamethasone, vaccine up to date x2, and has gotten booster. The patient did have coronavirus disease 2019 in August 2020 due to multiple comorbidities. Tocilizumab 800 mg 1 dose was given on 07/31. Plan: Continue pulse oximetry with goal of oxygen saturation more than 88. 4. Deep venous thrombosis prophylaxis. The patient is on Xarelto. 5. Chronic conditions. Severe obesity, body mass index 37 on admit. Unspecified depression, continue with bupropion. Unspecified gout, continue allopurinol 300 mg once daily. Also, the patient has had the clinical signs of congestive heart failure, and he was diuresed yesterday with Lasix 40 mg IV 1 dose, and he had an intake and output of -[id number] in the morning. For congestive heart failure due to rapid atrial fibrillation, the patient was started on Lasix 40 mg IV daily, and we will re-evaluate. [facility] /[id number]
[2021-08-03] MEDS: Nicotine 14 MG/24 Hr Patch TRDERM SCH (11:32)
[2021-08-03] MEDS: Doxycycline Monohydrate 100 MG Cap PO SCH ×2 (11:32→20:26)
[2021-08-03] MEDS: Furosemide 40 MG/4 ML VIAL IVPUSH SCH (12:05)
[2021-08-03] MEDS: Allopurinol 300 MG Tab PO SCH (12:05)
[2021-08-03] MEDS: Carvedilol 25 MG Tab PO SCH (12:41)
[2021-08-03] MEDS: Digoxin 125 MCG Tab PO SCH (12:42)
[2021-08-03] MEDS: Sotalol 80 MG Tab PO SCH (12:42)
[2021-08-03] MEDS: [UNRECOGNIZED DRUG - REMARK] PO SCH (13:13)
[2021-08-03] MEDS: Diltiazem IR 30 MG Tab PO SCH ×2 (16:11→21:31)
[2021-08-03] MEDS: Rivaroxaban 10 MG Tab PO SCH (17:19)
--- NOTE | 2021-08-03 17:26 | PN ---
DATE: 08/03/2021 SUBJECTIVE: The patient was seen today. He is out of bed in the chair. He is concerned about his heart rate. In the morning, his heart rate was still in 120. The patient was started on diltiazem drip and his Carvedilol, digoxin, and Sotalol were discontinued. The patient complained of constipation. Furosemide was discontinued also and he was started on senna for constipation. Vital signs in the morning were temperature 97.5, heart rate 122, blood pressure 91/68 with a mean pressure of 75, respiratory rate 18, and oxygen saturation 94. LABORATORY DATA: The labs we have for the patient are from 08/01/2021: Sodium 141, potassium 4.4, chloride 105, CO2 of 27, and creatinine 1.08 with a BUN of 17. Glucose 100, calcium 8.6, alkaline phosphatase 85, and his BNP done on 07/31/2021 was 515. The patient's echo done in 01/2021 showed diastolic dysfunction of left ventricle which is mildly dilated, grade 1, ejection fraction of 70, and cannot be excluded any motion abnormalities of the left ventricle. PHYSICAL EXAMINATION: The patient has an obesity of stage 3, BMI 36.3. HEENT: His head is atraumatic, normocephalic. Pupils equal, reactive to light. NECK: Supple. No thyromegaly. No lymphadenopathy. LUNGS: Mild wheezing, improved since yesterday. HEART: S1, S2. Irregular rhythm and rate, tachycardiac. ABDOMEN: Globular. Positive bowel sounds. No palpable masses. No tenderness. EXTREMITIES: No edema. ASSESSMENT AND PLAN: 1. Atrial fibrillation with rapid ventricular rate. The patient had brief episodes of rate. The patient was started in the morning on Cardizem drip. Currently he is on 50 mg diltiazem per hour with a heart rate of 75. 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 We will start the patient on Cardizem immediate release 120 mg every 6 hours and we will stop Cardizem drip 1 hour after the initiation of Cardizem 120 mg q.6 hours. The patient was discussed with Cardiology at [address]. If the patient's heart rate is still not controlled, we will digitalize the patient and follow up with Cardiology. 2. For chronic obstructive pulmonary disease, the patient's Solu-Medrol was decreased to 40 mg once a day and we will continue with doxycycline 100 mg p.o. b.i.d. Budesonide was discontinued as the patient cannot receive any nebulizer in the isolation room for COVID. 3. Coronavirus infection. The patient will be in isolation and he received tocilizumab 800 mg one dose on 07/31/2021. 4. Deep venous thrombosis prophylaxis, the patient is on Xarelto. 5. Chronic condition, severe obesity. Calorie-restricted diet recommended. 6. Unspecified gout. Will with allopurinol 300 mg daily. 7. Constipation: We will discontinue Lasix and we will start the patient on senna two tablets at bedtime. Also, the patient is on MiraLax p.o. daily p.r.n. for constipation. [facility] /[id number]
[2021-08-03] MEDS ORDERED: buPROPion 100 MG Tab.SR PO SCH (21:00)
[2021-08-04] MEDS: Diltiazem IR 30 MG Tab PO SCH (04:09)
[2021-08-04] MEDS: Allopurinol 300 MG Tab PO SCH (08:49)
[2021-08-04] MEDS: Nicotine 14 MG/24 Hr Patch TRDERM SCH (08:49)
[2021-08-04] MEDS: Doxycycline Monohydrate 100 MG Cap PO SCH (08:49)
[2021-08-04] MEDS ORDERED: Docusate Sodium 100 MG Cap PO SCH (09:00)
[2021-08-04] MEDS ORDERED: methylPREDNISolone Sodium Succinate 40 MG/1 ML SDV IVPUSH SCH (09:00)
[2021-08-04] MEDS ORDERED: Diltiazem 240 MG Cap.ER PO SCH (10:00)
[2021-08-04] MEDS ORDERED: buPROPion 100 MG Tab.SR PO SCH (10:28)
[2021-08-04] MEDS ORDERED: [UNRECOGNIZED DRUG - REMARK] PO SCH (10:30)
[2021-08-04 11:54] VITALS: BP 111/89; PULSE 83
--- NOTE | 2021-08-05 20:52 | DISCH ---
DISCHARGE DIAGNOSES: Atrial fibrillation with rapid ventricular rate, brief episode of atrial flutter, congestive heart failure, chronic obstructive pulmonary disease exacerbation, coronavirus disease 2019 infection. SECONDARY DIAGNOSES: The patient has hypertension and impaired vision. History of coronary artery disease, high cholesterol, history of bowel obstruction, history of panic attack, tobacco abuse. INFECTIOUS DISEASE HISTORY: Chickenpox. PAST SURGICAL HISTORY: Also, history of cardioversion, history of hernia repair. HOSPITAL COURSE: The patient is a 56-year-old man with past medical historysignificant for coronary artery disease, CHF, hypertension, nicotine dependence, 17-sgrd-anre smoking history, severe obesity, and paroxysmal atrial fibrillation, on long-term anticoagulation, presented to emergency department on 07/31/2021 with complaints of palpitation and shortness of breath. He tried to take his home medication and rest, but did not improve his symptoms prior to coming to hospital. He also reported a cough that is productive of tannish phlegm and has mild wheezing. In the hospital, he was found to have atrial fibrillation at 180 beats per minute, and he was given 1 dose of Cardizem 20 mg IV and his rate decreased to 130 and afterwards he was placed on Cardizem drip. The next day, he was changed to p.o. medications, which were titrated up, sotalol and carvedilol to a maximum dose, and also was given digoxin p.o. daily and Cardizem IV push 20 mg twice a day in the morning and in the evening, but the heart rate did not improve and bounced back in 130s, and the patient was started back on Cardizem drip. He was given 15 mg/hr and with a total equivalent of 480 mg Cardizem per day for transition to p.o. pills. The patient was transitioned to carvedilol immediate release p.o. q.6 hours and this was able to control his heart rate and the case was discussed with occupational safety and health manager and the patient today was changed to 480 mg extended release Cardizem and his heart remained stable in 88 and he was stable to be discharged home. During his hospital stay, he was also treated with Lasix 40 mg IV daily for CHF, and he was given Solu-Medrol and doxycycline 100 mg p.o. b.i.d. for COPD exacerbation. For tobacco abuse, he was given nicotine skin patch. Also, he complained of constipation and he was started on senna/Colace 2 tablets p.o. at bedtime. The patient was given followup appointment at [facility] in [place] with Titi Carter NP, on , 08/10 at 8:40 a.m. Follow up with Cardiology, JUAN DANIEL Denson, at [facility] located at [address] [place] [address] next to the main hospital located on the third floor, 08/30, at 2 p.m. Please arrive at 1:50 p.m. Vital signs at discharge, the patient had a temperature of 98.3, pulse 83, and blood pressure 111/89 with respiratory rate 20, and pulse oximetry is 95%. LABORATORY DATA: At discharge, his blood work on 08/01/2021 was WBC 3.9, hemoglobin 14.2, hematocrit 44.3, and platelet count 184. Sodium 141, potassium 4.4, chloride 105, CO2 of 27, and creatinine 1.08. Glucose 100, calcium 8.6, total bilirubin 0.5, AST 23, ALT 247, and alkaline phosphatase 85. BNP done on 07/31/2021 was 515. The patient had COVID positive test. He was kept in isolation. Also, chest x-ray was negative. PHYSICAL EXAMINATION: HEENT: Head: Atraumatic, normocephalic. Pupils equally reactive to light. Neck: Supple. No thyromegaly. No lymphadenopathy. Heart: S1, S2 irregular. No gallop. Lungs: Mild wheezing. Abdomen: Globulus, obese. Positive bowel sounds. No tenderness. Extremities: No edema. [facility] /[id number]
== END 2021-08-04 13:15 | disposition home or self-care (01) | DRG 201 ==
LOC: DL.ED 05:14 → DL.MS 07:29
PROVIDERS: ADMIT Hospitalist; ATTEND Internal Medicine
PROC: 8E0ZXY6 Isolation (ICD-10-PCS; principal; 2021-07-31)
DX: I48.0 Paroxysmal atrial fibrillation (principal); I11.0 Hypertensive heart disease with heart failure; I48.92 Unspecified atrial flutter; J44.1 Chronic obstructive pulmonary disease with (acute) exacerbation; H54.7 Unspecified visual loss; I25.10 Atherosclerotic heart disease of native coronary artery without angina pectoris; E78.00 Pure hypercholesterolemia, unspecified; F17.210 Nicotine dependence, cigarettes, uncomplicated; E66.9 Obesity, unspecified; U07.1 COVID-19; I50.32 Chronic diastolic (congestive) heart failure; Z66 Do not resuscitate; F32.A Depression, unspecified; M10.9 Gout, unspecified; K59.00 Constipation, unspecified; Z68.37 Body mass index [BMI] 37.0-37.9, adult; Z79.01 Long term (current) use of anticoagulants
CPT/HCPCS: 0240U; 36415; 71045; 80053; 82728; 83605; 83880; 84484; 85025; 85027; 85379; 86140; 87040; 93005; 96374; 99285-25; A9270-GY; J1160; J1940; J2920; J3490; M0249; Q0249

== ENCOUNTER 2021-09-01 01:32 | Emergency (ER) | payer BC ==
[2021-09-01 01:54] VITALS: BP 117/83; PULSE 87
[2021-09-01] MEDS ORDERED: Sodium Chloride 0.9% 10 ML Syringe FLUSH PRN (02:15)
--- NOTE | 2021-09-01 02:27 | EDM.PDOC ---
ED HPI GENERAL MEDICAL PROBLEM - General Chief Complaint: Respiratory Problem Stated Complaint: CANT BREATH Time Seen by Provider: 09/01/21 01:50 Source of Information: Reports: Patient, RN Notes Reviewed History Limitations: Reports: No Limitations - History of Present Illness INITIAL COMMENTS - FREE TEXT/NARRATIVE: 56 y/o M c/o sob that began about 8 am yesterday morning. Pt reports a cough began 2 days ago. Sob is worse with exertion. Has been coughing up green sputum. Hx of afiib in years ago and was NSR up until JUL 31 when he went back into afib. Is on xarelto. Denies fever, chills, cp, neck pn, abd pn, diff voiding, constipation, NVD, ext pain, fluid retention in legs, recent trauma, drugs, etoh. No previous AK. Is a current smoker and smoked for 41 years. Has been taking Robitussin OTC for cough with no relief. - Related Data Allergies Allergy/AdvReac Type Severity Reaction Status Date / Time No Known Allergies Allergy Verified 09/01/21 02:00 Home Meds: Home Meds Furosemide [Lasix] 20 mg PO DAILY 05/08/17 [History] Rivaroxaban [Xarelto] 20 mg PO DAILY 05/08/17 [History] Allopurinol [Zyloprim] 300 mg PO DAILY 07/31/21 [History] Diltiazem [Dilacor XR] 480 mg PO DAILY 30 Days #60 cap.er 08/04/21 [Rx] polyethylene glycoL 3350 [MiraLAX] 17 gm PO DAILY PRN 30 Days #30 packet 11/20 [Rx] Metoprolol Succinate 50 mg PO DAILY 09/01/21 [History] buPROPion HCL [Bupropion HCl Sr] 150 mg PO DAILY 09/01/21 [History] Past Medical History HEENT History: Reports: Impaired Vision Cardiovascular History: Reports: Afib, Arrhythmia, CAD, Heart Failure, High Cholesterol, Hypertension Respiratory History: Reports: SOB, Other (See Below) (likely COPD. no official PFTs) Gastrointestinal History: Reports: Other (See Below) (Hx of bowel obstruction) Psychiatric History: Reports: Panic Attack - Infectious Disease History Infectious Disease History: Reports: Novel Coronavirus - Past Surgical History Cardiovascular Surgical History: Reports: Other (See Below) Other Cardiovascular Surgeries/Procedures: Electrocardioversion GI Surgical History: Reports: Hernia Repair/Other Male Surgical History: Reports: None Social & Family History - Family History Family Medical History: No Pertinent Family History Cardiac: Reports: AK (brother) Oncologic: Reports: Bone (maternal grandmother), Lung (father and mother), Renal (brother) - Tobacco Use Tobacco Use Status *Q: Current Some Day Tobacco User Years of Tobacco use: 41 Packs/Tins Daily: 0.2 - Caffeine Use Caffeine Use: Reports: Coffee - Recreational Drug Use Recreational Drug Use: No ED ROS GENERAL - Review of Systems Review Of Systems: Comprehensive ROS is negative, except as noted in HPI. ED EXAM, GENERAL - Physical Exam Exam: See Below Exam Limited By: No Limitations General Appearance: Alert, Mild Distress (appears sob audible wheezing from bedside) Eye Exam: Bilateral Eye: PERRL Nose: Normal Inspection, Normal Mucosa, No Blood Throat/Mouth: Normal Inspection, Normal Lips, Normal Teeth, Normal Gums, Normal Oropharynx, Normal Voice, No Airway Compromise Head: Atraumatic, Normocephalic Neck: Normal Inspection Respiratory/Chest: No Accessory Muscle Use, Chest Non-Tender, Wheezing (all carson) Cardiovascular: No JVD, No Murmur, Irregularly Irregular GI/Abdominal: Soft, Non-Tender (Male) Exam: Deferred Rectal (Males) Exam: Deferred Back Exam: Normal Inspection, Full Range of Motion Extremities: Normal Inspection, Normal Range of Motion, Non-Tender, Normal Capillary Refill, No Pedal Edema Neurological: Alert, Oriented, CN II-XII Intact, Normal Cognition, Normal Gait, Normal Reflexes, No Motor/Sensory Deficits Skin Exam: Warm, Dry, Intact #1 Interpretation EKG Date: 09/01/21 Time: 02:06 Rhythm: A-Fib Rate (Beats/Min): 81 [place]: Normal P-Wave: Absent QRS: Normal ST-T: Normal QT: Normal Course - Vital Signs Last Recorded V/S: Last Vital Signs Temp 96.9 F 09/01/21 01:41 Pulse 87 09/01/21 01:41 Resp 22 H 09/01/21 01:41 BP 117/83 09/01/21 01:41 Pulse Ox 93 L 09/01/21 01:41 - Orders/Labs/Meds Orders: Active Orders 24 hr Category Date Time Status Peripheral IV Care [RC] . DIRECTED Care 09/01/21 02:17 Active RT Aerosol Therapy [RC] ASDIRECTED Care 09/01/21 03:11 Active Sodium Chloride 0.9% [Saline Flush] Med 09/01/21 02:15 Active 10 ml FLUSH ASDIRECTED PRN Peripheral IV Insertion Adult [OM.PC] Routine Oth 09/01/21 02:16 Ordered Medication Orders Sodium Chloride (Sodium Chloride 0.9% 10 Ml Syringe) 10 ml FLUSH ASDIRECTED PRN PRN Reason: Keep Vein Open Last Admin: 09/01/21 01:41 Dose: 10 ml Documented by: SEAN Labs: Laboratory Tests 09/01/21 09/01/21 09/01/21 Range/Units 01:39 02:20 02:20 WBC 9.2 (5.0-10.0) 10^3/uL RBC 4.65 (4.6-6.2) 10^6/uL Hgb 14.4 (14.0-18.0) g/dL Hct 44.5 (40.0-54.0) % MCV 95.7 (80-100) fL MCH 31.0 (27.0-34.0) pg MCHC 32.4 L (33.0-35.0) g/dL Plt Count 177 (150-450) 10^3/uL Neut % (Auto) 65.8 (42.2-75.2) % Lymph % (Auto) 21.4 (20.5-50.1) % Scott % (Auto) 10.3 H (2-8) % Eos % (Auto) 2.2 (1.0-3.0) % Baso % (Auto) 0.3 (0.0-1.0) % Sodium 140 (136-145) mmol/L Potassium 4.1 (3.5-5.1) mmol/L Chloride 104 (98-107) mmol/L Carbon Dioxide 26 (21-32) mmol/L Anion Gap 14.1 H (7-13) mEq/L BUN 18 (7-18) mg/dL Creatinine 1.12 (0.70-1.30) mg/dL Est Cr Clr Drug Dosing 74.23 mL/min Estimated GFR (MDRD) > 60 BUN/Creatinine Ratio 16.1 (No establ ref range) Glucose 119 H (70-99) mg/dL Calcium 8.7 (8.5-10.1) mg/dL Total Bilirubin 0.6 (0.2-1.0) mg/dL AST 34 (15-37) U/L ALT 66 H (16-63) U/L Alkaline Phosphatase 68 (46-116) U/L C-Reactive Protein < 0.2 (0.0-0.9) mg/dL B-Natriuretic Peptide 331 H (0-100) pg/ml Total Protein 6.7 (6.4-8.2) g/dL Albumin 3.8 (3.4-5.0) g/dL Globulin 2.9 Albumin/Globulin Ratio 1.3 TSH, Ultra Sensitive 4.10 H (0.36-3.74) uIU/mL Influenza Type A RNA Negative (NEGATIVE) Influenza Type B RNA Negative (NEGATIVE) SARS-CoV-2 RNA (TANNA) Negative (NEGATIVE) Meds: Medications Generic Name Dose Route Start Last Admin Trade Name Freq PRN Reason Stop Dose Admin Sodium Chloride 10 ml 09/01/21 02:15 09/01/21 01:41 Sodium Chloride 0.9% 10 Ml Syringe FLUSH 10 ml ASDIRECTED PRN Administration Keep Vein Open Discontinued Medications Generic Name Dose Route Start Last Admin Trade Name Freq PRN Reason Stop Dose Admin Albuterol 2.5 mg 09/01/21 03:11 09/01/21 03:29 Albuterol 0.083% 2.5 Mg/3 Ml Neb Soln NEB 09/01/21 03:12 2.5 mg ONETIME ONE Administration Furosemide 60 mg 09/01/21 04:56 09/01/21 05:10 Furosemide 100 Mg/10 Ml Sdv IVPUSH 09/01/21 04:57 60 mg ONETIME ONE Administration - Re-Assessments/Exams Free Text/Narrative Re-Assessment/Exam: 09/01/21 05:01 I discussed the labs, exam, ekg and xray wit the pt and expalined the fluid collection in his lungs on the cxr. I will give him a dose of lasixs here and provide him with an RX for 60 mg lasix for 5 days to get the extra fluid off his lungs and then return to his normal dose of 20mg per day. 09/01/21 05:15 Departure - Departure Time of Disposition: 05:04 Disposition: Home, Self-Care 01 Condition: Good Clinical Impression: Mild congestive heart failure - Discharge Information *PRESCRIPTION DRUG MONITORING PROGRAM REVIEWED*: Not Applicable *COPY OF PRESCRIPTION DRUG MONITORING REPORT IN PATIENT DEISY: Not Applicable Instructions: Preventing Heart Failure Forms: ED Department Discharge Additional Instructions: RX: Lasixs If your symptoms do not resolve by the middle of next week contact your primary care facility. If any new symptoms or concerns develop contact your primary care facility or return to the ER. Sepsis Event Note (ED) - Evaluation Sepsis Screening Result: No Definite Risk - Focused Exam Vital Signs: Vital Signs Temp Pulse Resp BP Pulse Ox 09/01/21 01:41 96.9 F 87 22 H 117/83 93 L - My Orders Last 24 Hours: My Active Orders 09/01/21 02:15 Sodium Chloride 0.9% [Saline Flush] 10 ml FLUSH ASDIRECTED PRN 09/01/21 02:16 Peripheral IV Insertion Adult [OM.PC] Routine 09/01/21 02:17 Peripheral IV Care [RC] . DIRECTED 09/01/21 03:11 RT Aerosol Therapy [RC] ASDIRECTED - Assessment/Plan Last 24 Hours: My Active Orders 09/01/21 02:15 Sodium Chloride 0.9% [Saline Flush] 10 ml FLUSH ASDIRECTED PRN 09/01/21 02:16 Peripheral IV Insertion Adult [OM.PC] Routine 09/01/21 02:17 Peripheral IV Care [RC] . DIRECTED 09/01/21 03:11 RT Aerosol Therapy [RC] ASDIRECTED
[2021-09-01 03:09] LABS: ANION GAP 14.1 mEq/L (7-13); CHLORIDE,CL 104 mmol/L (98-107); SODIUM,NA 140 mmol/L (136-145)
[2021-09-01] MEDS ORDERED: Albuterol 0.083% 2.5 MG/3 ML Neb Soln NEB ONE (03:11)
[2021-09-01 03:25] LABS: CORONAVIRUS COVID-19 NAA NEGATIVE (NEGATIVE)
--- NOTE | 2021-09-01 04:52 | CR ---
PROCEDURE INFORMATION: Exam: XR Chest Exam date and time: 09/01/2021 3:32 AM Age: 56 years old Clinical indication: Cough and shortness of breath; Patient HX: Patient has a zio patch on; Additional info: SOB, cough TECHNIQUE: Imaging protocol: XR of the chest. Views: 1 view. COMPARISON: CR Chest 1V Frontal 08/02/2021 12:59 PM FINDINGS: Lungs: Bilateral pulmonary venous congestive changes with mild interstitial edema consistent with mild CHF. Pleural spaces: Unremarkable. No pleural effusion. No pneumothorax. Heart/Mediastinum: Cardiomegaly Bones/joints: Unremarkable. Other findings: Probable small bilateral effusions IMPRESSION: 1. Cardiomegaly 2. Bilateral pulmonary venous congestive changes with mild interstitial edema consistent with mild CHF. 3. Probable small bilateral effusions
[2021-09-01] MEDS ORDERED: Furosemide 100 MG/10 ML SDV IVPUSH ONE (04:56)
== END 2021-09-01 05:19 | disposition home or self-care (01) ==
LOC: DL.ED 01:32
DX: I11.0 Hypertensive heart disease with heart failure (principal); I50.9 Heart failure, unspecified; I48.91 Unspecified atrial fibrillation; I25.10 Atherosclerotic heart disease of native coronary artery without angina pectoris; Z20.822 Contact with and (suspected) exposure to COVID-19; Z79.899 Other long term (current) drug therapy; Z79.01 Long term (current) use of anticoagulants; Z72.0 Tobacco use
CPT/HCPCS: 0240U; 36415; 71045; 80053; 83880; 84443; 85025; 86140; 93005; 94640; 96374; 99285; J1940; J7613-GY

== ENCOUNTER 2021-09-02 23:18 | Emergency (ER) | payer BC ==
[2021-09-03 01:19] VITALS: BP 160/92; PULSE 133
[2021-09-03 02:07] LABS: ANION GAP 13.1 mEq/L (7-13); CHLORIDE,CL 103 mmol/L (98-107); SODIUM,NA 140 mmol/L (136-145)
[2021-09-03] MEDS: Albuterol 0.083% 2.5 MG/3 ML Neb Soln NEB ONE (03:24)
[2021-09-03] MEDS ORDERED: Albuterol 6.7 GM Inhaler INH ONE (04:36)
== END 2021-09-03 04:49 | disposition home or self-care (01) ==
LOC: DL.ED 23:18
DX: I11.0 Hypertensive heart disease with heart failure (principal); I50.9 Heart failure, unspecified; R06.2 Wheezing; I48.91 Unspecified atrial fibrillation; I25.10 Atherosclerotic heart disease of native coronary artery without angina pectoris; E78.00 Pure hypercholesterolemia, unspecified; R94.31 Abnormal electrocardiogram [ECG] [EKG]; Z72.0 Tobacco use; Z79.01 Long term (current) use of anticoagulants; Z79.899 Other long term (current) drug therapy
CPT/HCPCS: 36415; 71045; 80053; 83880; 84484; 85025; 93005; 94640; 99285-25; A9270-GY; J7613-GY